=== PATIENT | male | born 1970 | race Caucasian/White ===

== ENCOUNTER 2024-12-22 18:29 | Emergency (ER) | payer SELFPAY ==
[~2024-12-22] VITALS: Ht 170.2 cm; Wt 82.0 kg
[2024-12-22 18:44] VITALS: TEMP 37; O2SAT 98
[2024-12-22 19:37] LABS: BASOPHILS % 0.7 % (0.0-2.0); EOSINOPHILS % 4.4 % (0.0-5.0); HEMATOCRIT. 34.2 % (42.0-52.0); HEMOGLOBIN. 10.3 g/dL (14.0-18.0); LYMPHOCYTES % 24.2 % (20.0-50.0); MEAN PLATELET VOLUME 8.4 fl (7.4-10.4); MONOCYTES % 7.2 % (2.0-8.0); NEUTROPHILS % 63.5 % (40.0-76.0); PLATELET 278 x1000/uL (130-400); RED BLOOD CELL COUNT 4.72 mill/uL (4.7-6.1); RED CELL DISTRIBUTION WIDTH 19.2 % (11.6-14.6)
[2024-12-22 19:48] LABS: INR 0.9
[2024-12-22 19:55] LABS: CREATININE 1.2 mg/dL (0.6-1.3); ETHANOL BLOOD < 10 mg/dL (<10); TROPONIN I HIGH SENSITIVITY < 4 ng/L (3.0-53); UREA NITROGEN BLOOD 16 mg/dL (9-23)
[2024-12-22 21:47] VITALS: BP 147/87; PULSE 87; RESP 16; O2SAT 98
== END 2024-12-22 22:06 | disposition home or self-care (01) ==
LOC: ER 18:29
DX: R55 Syncope and collapse (principal); F15.90 Other stimulant use, unspecified, uncomplicated; Z79.899 Other long term (current) drug therapy
CPT/HCPCS: 36415; 71045; 80048; 80320; 84484; 85025; 93005; 99285; G0480